=== PATIENT | female | born 1990 | race Hispanic/Latino ===

== ENCOUNTER 2021-07-02 12:52 | Outpatient (CLI) | payer BC ==
[~2021-07-02 12:52] MED LIST: GASTROGRAFIN 30 ML BOT ONE; Iopamidol 370 76% 100 ML VIAL ONE
== END 2021-07-02 12:53 | disposition home or self-care (01) ==
LOC: CT 12:52
PROVIDERS: ATTEND Nurse Practitioner Family
DX: R10.31 Right lower quadrant pain (principal); N83.202 Unspecified ovarian cyst, left side; N83.8 Other noninflammatory disorders of ovary, fallopian tube and broad ligament
CPT/HCPCS: 74177; Q9963; Q9967